=== PATIENT | female | born 1995 | race Hispanic/Latino ===

== ENCOUNTER 2019-06-26 17:07 | Inpatient (IN) | payer MEDICAID ==
[~2019-06-26] VITALS: Ht 165.1 cm; Wt 81.6 kg
[2019-06-26] MEDS ORDERED: LACTATED RINGERS 1000ML 1,000 ML IV PRN (17:18)
[2019-06-26] MEDS ORDERED: MEPERIDINE-PF 50 MG/ML SYG IVP PRN (17:30)
[2019-06-26] MEDS ORDERED: LACTATED RINGERS 500 ML 500 ML IV PRN (17:30)
[2019-06-26] MEDS ORDERED: OXYTOCIN-LR 20 UNITS/1000 ML 1,000 ML IV SCH (17:30)
[2019-06-26] MEDS ORDERED: NALOXONE HCL 0.4 MG/1 ML ML IV PRN (17:30)
[2019-06-26] MEDS ORDERED: EPHEDRINE SULFATE 50 MG/ML AMPULE IVP PRN (17:30)
[2019-06-26] MEDS ORDERED: ROPIVACAINE 0.2% 100ML VIAL 100 ML EP SCH (17:30)
[2019-06-26] MEDS ORDERED: PROMETHAZINE HCL 25 MG/ML 1ML AMPULE IM PRN (17:30)
[2019-06-26 18:02] LABS: HEMATOCRIT 32.2 % (36-48); MEAN CORPUSCULAR HEMOGLOBIN 28.5 pg (27.0-33.0); MEAN CORPUSCULAR HGB CONC 33.2 g/dL (32.0-36.0); MEAN CORPUSCULAR VOLUME 85.6 fL (79-99); PLATELET COUNT (AUTO) 208 K/uL (130-400); RED BLOOD CELL COUNT(AUTO) 3.76 MIL/uL (4.00-5.50); RED CELL DISTRIBUTION WIDTH 13.5 % (11.0-15.5); WHITE BLOOD COUNT (AUTO) 8.7 K/uL (4.8-10.8)
[2019-06-26 18:09] LABS: APPEARANCE,URINE Clear (CLEAR); BILIRUBIN,URINE Negative (NEGATIVE); COLOR,URINE Yellow (YELLOW); GLUCOSE, URINE (UA) Negative (NEGATIVE); KETONES,URINE Negative (NEGATIVE); LEUKOCYTE ESTERASE ,URINE Negative (NEGATIVE); NITRATE,URINE Negative (NEGATIVE); OCCULT BLOOD,URINE Negative (NEGATIVE); PROTEIN,URINE Negative (NEGATIVE); UROBILINOGEN,URINE 0.2 mg/dL (0.2-1.0)
[2019-06-26] MEDS ORDERED: DINOPROSTONE 10 MG VAGINAL SUPP VG SCH (19:10)
[2019-06-26 19:32] VITALS: BP 104/57
[2019-06-26 20:14] LABS: AMPHET/METH SCREEN,URINE NEGATIVE (NEGATIVE); BARBITURATE SCREEN, URINE NEGATIVE (NEGATIVE); BENZODIAZEPINES SCREEN,URINE NEGATIVE (NEGATIVE); CANNABINOID SCREEN,URINE NEGATIVE (NEGATIVE); COCAINE SCREEN,URINE NEGATIVE (NEGATIVE); OPIATE SCREEN,URINE NEGATIVE (NEGATIVE); PHENCYCLIDINE SCREEN,URINE NEGATIVE (NEGATIVE)
[2019-06-27] MEDS ORDERED: OXYTOCIN 10 USP UNITS/ML 20 UNIT in LACTATED RINGERS 1000ML 1,000 ML IV SCH (07:00)
[2019-06-27] MEDS ORDERED: MISOPROSTOL 25 MCG TABLET ONE ×2 (19:38→23:44)
[2019-06-27] MEDS: MISOPROSTOL 100 MCG TABLET VG SCH ×2 (19:56→23:47)
[2019-06-28] MEDS ORDERED: OXYTOCIN-LR 20 UNITS/1000 ML 1,000 ML IV ONE ×3 (03:39→19:31)
[2019-06-28 08:10] LABS: HEPATITIS Bs ANTIGEN SCREEN P Negative (Negative)
[2019-06-28] MEDS ORDERED: FENTANYL CITRATE PF 50 MCG/1 ML 2ML VIAL ONE (12:45)
[2019-06-28] MEDS ORDERED: METHYLERGONOVINE MALEATE 0.2 MG/1 ML ML ONE (18:29)
[2019-06-28] MEDS ORDERED: MISOPROSTOL 200 MCG TABLET ONE (18:31)
[2019-06-28] MEDS ORDERED: IBUPROFEN 600 MG TABLET PO PRN (18:45)
[2019-06-28] MEDS ORDERED: BENZOCAINE/LANOLIN/ALOE VERA 60 ML AEROSOL TP PRN (18:45)
[2019-06-28] MEDS ORDERED: ACETAMINOPHEN 325 MG TAB PO PRN (18:45)
[2019-06-28] MEDS ORDERED: ACETAMINOPHEN-CODEINE 300/30MG TAB PO PRN (18:45)
[2019-06-28] MEDS ORDERED: MEASLES/MUMPS/RUBELLA VACCINE, LIVE 0.5 ML/VIAL SQ PRN (18:45)
[2019-06-28] MEDS ORDERED: LANOLIN 30GM OINTMENT TP PRN (18:45)
[2019-06-28] MEDS ORDERED: WITCH HAZEL 1 PAD TP PRN (18:45)
[2019-06-28] MEDS ORDERED: DIPH,PERTUSS(ACELL),TET VAC/PF 0.5 ML VIAL IM PRN (18:45)
[2019-06-28] MEDS: MISOPROSTOL 100 MCG TABLET VG SCH (20:00)
[2019-06-28] MEDS: DOCUSATE SODIUM 100 MG CAP PO SCH (20:58)
[2019-06-28 22:48] VITALS: BP 108/75
[2019-06-29] MEDS ORDERED: PREN-94 PO (00:32)
[2019-06-29 00:33] VITALS: BP 98/59
[2019-06-29] MEDS: MISOPROSTOL 100 MCG TABLET VG SCH ×2 (04:00)
[2019-06-29 04:04] VITALS: BP 99/65
[2019-06-29 07:48] VITALS: BP 96/60
--- NOTE | 2019-06-29 07:50 | NUR ---
ASSESSMENT: RECEIVED RESTING IN BED, EXPLAINED POC AND UNDERSTANDING VERBALIZED, CALL CAREY AT HER SIDE.
[2019-06-29] MEDS: DOCUSATE SODIUM 100 MG CAP PO SCH (08:11)
--- NOTE | 2019-06-29 09:18 | NUR ---
ASSESSMENT: Sharon HERRERA CNM ASSESSED PT AND DISCUSSED POC.
[2019-06-29 09:48] LABS: HEMATOCRIT 26.5 % (36-48)
[2019-06-29 11:52] VITALS: BP 87/50
--- NOTE | 2019-06-29 13:00 | NUR ---
HYGEINE: TOOK SHOWER.
[2019-06-29 16:00] VITALS: BP 110/76
--- NOTE | 2019-06-29 16:25 | NUR ---
DISCHARGE: DISCHARGE INSTRUCTIONS GIVEN TO PT AND ON SELF CARE POST VAGINAL DELIVERY, DIETS TO FOLLOW, REVIEWED RX'S FOR HOME MEDS, TO CALL DR JOSE'S OFFICE MONDAY AND MAKE FOLLOW UP APPOINTMENT FOR 1-2 WEEKS OR SOONER IF NEEDED. UNDERSTANDING VERBALIZED AND COPIES OF ALL INSTRUCTIONS GIVEN TO PT.
--- NOTE | 2019-06-29 18:30 | NUR ---
DISCHARGE: DISCHARGED HOME WITH HER BABY VIA W/C TO PRIVATE CAR WITH .
== END 2019-06-29 18:30 | disposition home or self-care (01) | DRG 560 ==
LOC: LDH 17:07 → WSH 06-28 22:50
PROVIDERS: ADMIT Obstetrics & Gynecology; ATTEND Obstetrics & Gynecology
PROC: 3E0P7VZ Introduction of Hormone into Female Reproductive, Via Natural or Artificial Opening (ICD-10-PCS; 2019-06-26)
PROC: 3E033VJ Introduction of Other Hormone into Peripheral Vein, Percutaneous Approach (ICD-10-PCS; 2019-06-27)
PROC: 10907ZC Drainage of Amniotic Fluid, Therapeutic from Products of Conception, Via Natural or Artificial Opening (ICD-10-PCS; principal; 2019-06-28)
PROC: 10E0XZZ Delivery of Products of Conception, External Approach (ICD-10-PCS; 2019-06-28)
PROC: 3E0234Z Introduction of Serum, Toxoid and Vaccine into Muscle, Percutaneous Approach (ICD-10-PCS; 2019-06-28)
PROC: 3E0134Z Introduction of Serum, Toxoid and Vaccine into Subcutaneous Tissue, Percutaneous Approach (ICD-10-PCS; 2019-06-28)
PROC: 3E0R3BZ Introduction of Anesthetic Agent into Spinal Canal, Percutaneous Approach (ICD-10-PCS; 2019-06-28)
PROC: 00HU33Z Insertion of Infusion Device into Spinal Canal, Percutaneous Approach (ICD-10-PCS; 2019-06-28)
DX: O62.2 Other uterine inertia (principal); Z37.0 Single live birth; Z23 Encounter for immunization; Z3A.40 40 weeks gestation of pregnancy
CPT/HCPCS: 36415; 76815; 80305; 81003; 85014; 85018; 85027; 86592; 86850; 86900; 86901; 87340; A4314; G0378; J2175; J2210; J2550; J2590; J2795; J3010; J7120

== ENCOUNTER 2021-11-05 15:36 | Inpatient (IN) | payer MEDICAID ==
[~2021-11-05] VITALS: Ht 165.1 cm; Wt 89.8 kg
[~2021-11-05 15:36] MED LIST: PREN-94 PO
[2021-11-16] MEDS ORDERED: PROMETHAZINE HCL 25 MG/ML 1ML AMPULE IM PRN (18:00)
[2021-11-16] MEDS ORDERED: MEPERIDINE-PF 50 MG/ML SYG IVP PRN (18:00)
[2021-11-16] MEDS ORDERED: NALOXONE HCL 0.4 MG/1 ML ML IV PRN (18:00)
[2021-11-16] MEDS ORDERED: EPHEDRINE SULFATE 50 MG/ML AMPULE IVP PRN (18:00)
[2021-11-16] MEDS ORDERED: LACTATED RINGERS 500 ML 500 ML IV PRN (18:00)
[2021-11-16] MEDS ORDERED: ROPIVACAINE 0.2% 100ML VIAL 100 ML EP PRN (18:00)
[2021-11-16 18:20] LABS: HEMATOCRIT 33.2 % (36-48); MEAN CORPUSCULAR HEMOGLOBIN 29.7 pg (27.0-33.0); MEAN CORPUSCULAR VOLUME 87.1 fL (79-99); RED BLOOD CELL COUNT(AUTO) 3.81 MIL/uL (4.00-5.50); RED CELL DISTRIBUTION WIDTH 13.3 % (11.0-15.5); WHITE BLOOD COUNT (AUTO) 8.7 K/uL (4.8-10.8)
[2021-11-16 18:22] LABS: APPEARANCE,URINE CLEAR (CLEAR); BILIRUBIN,URINE NEGATIVE (NEGATIVE); COLOR,URINE LIGHT-YELLOW (YELLOW); GLUCOSE, URINE (UA) NEGATIVE (NEGATIVE); KETONES,URINE NEGATIVE (NEGATIVE); LEUKOCYTE ESTERASE ,URINE NEGATIVE Leu/uL (NEGATIVE); NITRATE,URINE NEGATIVE (NEGATIVE); OCCULT BLOOD,URINE NEGATIVE (NEGATIVE); PROTEIN,URINE NEGATIVE (NEGATIVE); UROBILINOGEN,URINE 0.2 mg/dL (0.2-1.0)
[2021-11-16] MEDS: LACTATED RINGERS 1000ML 1,000 ML IV PRN (18:35)
[2021-11-16 22:02] VITALS: BP 121/66
[2021-11-17] MEDS ORDERED: OXYTOCIN-LR 20 UNITS/1000 ML 1,000 ML IV SCH ×2 (04:00→13:00)
[2021-11-17] MEDS: LACTATED RINGERS 1000ML 1,000 ML IV PRN ×3 (04:01→10:00)
[2021-11-17 10:46] LABS: RAPID PLASMA REAGIN NONREACTIVE (NONREACTIVE)
[2021-11-17] MEDS ORDERED: LANOLIN 30GM OINTMENT TP PRN (13:00)
[2021-11-17] MEDS ORDERED: MEASLES/MUMPS/RUBELLA VACCINE, LIVE 0.5 ML/VIAL SQ PRN (13:00)
[2021-11-17] MEDS ORDERED: ACETAMINOPHEN 325 MG TAB PO PRN (13:00)
[2021-11-17] MEDS ORDERED: DIPH,PERTUSS(ACELL),TET VAC/PF 0.5 ML VIAL IM PRN (13:00)
[2021-11-17] MEDS ORDERED: ACETAMINOPHEN WITH CODEINE 1 TAB TAB PO PRN (13:00)
[2021-11-17] MEDS ORDERED: BENZOCAINE/LANOLIN/ALOE VERA 60 ML AEROSOL TP PRN (13:00)
[2021-11-17] MEDS ORDERED: WITCH HAZEL 1 PAD TP PRN (13:00)
[2021-11-17 14:50] VITALS: BP 100/66
[2021-11-17] MEDS: IBUPROFEN 600 MG TABLET PO PRN (15:36)
[2021-11-17 16:04] VITALS: BP 123/71
[2021-11-17 19:13] VITALS: BP 117/78
[2021-11-17] MEDS: DOCUSATE SODIUM 100 MG CAP PO SCH (21:00)
[2021-11-17 23:10] VITALS: BP 100/60
[2021-11-18 03:48] VITALS: BP 101/52
[2021-11-18] MEDS: IBUPROFEN 600 MG TABLET PO PRN ×2 (03:51→09:16)
[2021-11-18 06:53] LABS: HEMATOCRIT 30.7 % (36-48); MEAN CORPUSCULAR HEMOGLOBIN 29.3 pg (27.0-33.0); MEAN CORPUSCULAR HGB CONC 32.9 g/dL (32.0-36.0); RED BLOOD CELL COUNT(AUTO) 3.45 MIL/uL (4.00-5.50); RED CELL DISTRIBUTION WIDTH 13.5 % (11.0-15.5); WHITE BLOOD COUNT (AUTO) 10.7 K/uL (4.8-10.8)
[2021-11-18 07:37] VITALS: BP 116/72
[2021-11-18] MEDS: DOCUSATE SODIUM 100 MG CAP PO SCH (09:16)
[2021-11-18 11:55] VITALS: BP 162/89
[2021-11-18 11:58] VITALS: BP 127/77
== END 2021-11-18 13:15 | disposition home or self-care (01) | DRG 560 ==
LOC: LDH 11-16 17:40 → OBSVTOIN 11-16 17:40 → WSH 11-17 14:44
PROVIDERS: ADMIT Obstetrics & Gynecology; ATTEND Obstetrics & Gynecology
PROC: 10E0XZZ Delivery of Products of Conception, External Approach (ICD-10-PCS; principal; 2021-11-17)
PROC: 3E0R3BZ Introduction of Anesthetic Agent into Spinal Canal, Percutaneous Approach (ICD-10-PCS; 2021-11-17)
PROC: 00HU33Z Insertion of Infusion Device into Spinal Canal, Percutaneous Approach (ICD-10-PCS; 2021-11-17)
PROC: 10907ZC Drainage of Amniotic Fluid, Therapeutic from Products of Conception, Via Natural or Artificial Opening (ICD-10-PCS; 2021-11-17)
PROC: 0UQMXZZ Repair Vulva, External Approach (ICD-10-PCS; 2021-11-17)
DX: O69.81X0 Labor and delivery complicated by cord around neck, without compression, not applicable or unspecified (principal); Z37.0 Single live birth; O71.82 Other specified trauma to perineum and vulva; Z3A.39 39 weeks gestation of pregnancy
CPT/HCPCS: 36415; 81003; 85027; 86592; 86701; 86850; 86900; 86901; 87340; 87390; 90715; A4314; G0378; J2590; J2795; J7120

== ENCOUNTER 2025-01-16 21:51 | Emergency (ER) | payer MEDICAID ==
[~2025-01-16] VITALS: Ht 165.1 cm; Wt 88.5 kg
--- NOTE | 2025-01-16 21:57 | NUR ---
UA CUP PROVIDED
--- NOTE | 2025-01-16 22:05 | NUR ---
UA COLLECTED AND SENT
[2025-01-16 22:14] LABS: APPEARANCE,URINE CLEAR (CLEAR); GLUCOSE, URINE (UA) NEGATIVE (NEGATIVE); LEUKOCYTE ESTERASE ,URINE NEGATIVE Leu/uL (NEGATIVE); NITRATE,URINE NEGATIVE (NEGATIVE); OCCULT BLOOD,URINE MODERATE (NEGATIVE)
[2025-01-16 22:15] LABS: ADD UA MICROSCOPIC YES
[2025-01-16 22:18] LABS: SQUAMOUS EPITHELIAL CELL,UR FEW /HPF (0-2)
--- NOTE | 2025-01-16 22:51 | ERN ---
General Chief Complaint: OB>20 weeks gest. Stated Complaint: 24 WEEKS OB, VAGINAL BLEEDING Time Seen by MD: 21:57 History of Present Illness Initial Comments 29-year-old female currently 24 weeks follow up by Dr. rhodes here for evaluation of lower abdominal pain and vaginal bleeding. Patient states that she had woke up this morning in her normal state of health however noticed some vaginal bleeding. No fever no cough no shortness a breath. No nausea vomiting diarrhea. No abdominal pain other than the lower abdomen. Allergies: Coded Allergies: No Known Allergies (Unverified Allergy, Unknown, 06/26/19) Home Meds Reported Medications #103/Iron Fumarate/FA ( Tablet) 1 Each Tablet, 1 EACH PO DAILY, TAB 06/29/19 Past Medical History Past Medical History: No Pertinent History Past Surgical History: Other Surgical History Other: LEFT CLAVICLE Female( History) : 3 Para: 2 Gastrointestinal/Abdominal: (+) abdominal pain Genitourinary: (+) vaginal bleeding Review of Systems: was completed, & the rest were negative. Physical Exam General Appearance: (+) no apparent distress Orientation: (+) alert, (+) oriented x 3 Eye: bilateral eye normal inspection, bilateral eye PERRL Ear, Nose, Throat: (+) hearing grossly normal, (+) normal ENT inspection, (+) moist mucous membraine, (+) normal pharynx Neck: (+) normal inspection, (+) supple, (+) full range of motion Respiratory: (+) chest non-tender, (+) lungs clear Heart: (+) regular; (-) murmur Gastrointestinal: (+) soft (Gravid abdomen) Skin: (+) normal color, (+) warm/dry Results Laboratory and Microbiology Lab and Micro Result Laboratory Tests Test 01/16/25 22:05 01/16/25 23:15 Urine Color LIGHT-YELLOW (YELLOW) Urine Appearance CLEAR (CLEAR) Urine pH 7.5 (5.0-8.0) Urine Specific [place] 1.023 (1.001-1.031) Urine Protein NEGATIVE mg/dL (NEGATIVE) Urine Glucose (UA) NEGATIVE mg/dL (NEGATIVE) Urine Ketones 5 mg/dL (NEGATIVE) H Urine Occult Blood MODERATE (NEGATIVE) H Urine Nitrate NEGATIVE (NEGATIVE) Urine Bilirubin NEGATIVE mg/dL (NEGATIVE) Urine Urobilinogen 0.2 mg/dL (0.2-1.0) Urine Leukocyte Esterase NEGATIVE Kay/uL Urine RBC TNTC /HPF (0-1) H Urine WBC 2-5 /HPF (0-1) H Urine Squamous Epithelial Cells FEW /HPF (0-2) Urine Bacteria RARE /HPF (None Seen) White Blood Count 9.6 K/uL (4.8-10.8) Red Blood Count 3.68 MIL/uL (4.00-5.50) L Hemoglobin 11.3 g/dL (12.0-16.0) L Hematocrit 32.6 % (36-48) L Mean Corpuscular Volume 88.6 fL (79-99) Mean Corpuscular Hemoglobin 30.7 pg (27.0-33.0) Mean Corpuscular Hemoglobin Concent 34.7 g/dL (32.0-36.0) Red Cell Distribution Width 13.4 % (11.0-15.5) Platelet Count 212 K/uL (130-400) Mean Platelet Volume 10.5 fL (7.5-10.5) Immature Granulocyte % (Auto) 0.2 % (0-1) Neutrophils (%) (Auto) 71.3 % (40.0-77.0) Lymphocytes (%) (Auto) 21.6 % (21.0-51.0) Monocytes (%) (Auto) 6.0 % (3.0-13.0) Eosinophils (%) (Auto) 0.7 % (0.0-8.0) Basophils (%) (Auto) 0.2 % (0.0-5.0) Neutrophils # (Auto) 6.8 K/uL (1.8-7.7) Lymphocytes # (Auto) 2.1 K/uL (1.0-4.8) Monocytes # (Auto) 0.6 K/uL (0.1-1.0) Eosinophils # (Auto) 0.07 K/uL (0.00-0.70) Basophils # (Auto) 0.02 K/uL (0.00-0.20) Absolute Immature Granulocyte (auto 0.02 K/uL (0-1) Nucleated Red Blood Cells 0.0 % (0.0-0.19) Sodium Level 136 mmol/L (136-145) Potassium Level 3.6 mmol/L (3.5-5.1) Chloride Level 103 mmol/L (101-111) Carbon Dioxide Level 24 mmol/L (21-32) Blood Urea Nitrogen 6 mg/dL (7-18) L Creatinine 0.7 mg/dL (0.5-1.0) Glomerular Filtration Rate Calc 121 mL/min (>90) Random Glucose 105 mg/dL (70-105) Total Calcium 8.0 mg/dL (8.5-10.1) L Labs Reviewed?: Yes EKG/XRAY/US/CT/MRI Ultrasound Comment heart tones 154. Fetus at 25 weeks. Cervix closed No abnormality as per wet read REASON: lower abd pain, vaginal bleeding, ORDERING PHYSICIAN: FARA LUNA MD PROCEDURE: OB >14 - US OB >14 WEEKS EXAMINATION: COMPLETE TRANSABDOMINAL OBSTETRIC ULTRASOUND. CLINICAL INDICATION: OB second trimester. Lower abdominal pain and vaginal bleeding. History of previous ultrasound showing echogenic lung. COMPARISON: None. TECHNIQUE: Grayscale ultrasonography of the lower abdomen and pelvis. FINDINGS: A single, live, intrauterine fetus is seen in cephalic presentation. The estimated date of delivery as per the ultrasound done today is 05/25/2025, corresponding to a gestational age of 25 weeks 4 days. The placenta is posterior, grade I maturity. No placenta previa. Cervix is closed, measures 3.9 cm. Heart rate is 154 beats per minute. weight is 834 +/- 125 g (74%). The parameters are as follows: Biparietal diameter: 6.3 cm (EGA - 25 weeks, 4 days). Head circumference: 23.6 cm (EGA - 25 weeks, 4 days). Abdominal circumference: 21.1 cm (EGA - 25 weeks, 4 days). Femoral length: 4.7 cm (EGA - 25 weeks, 5 days). HC/AC ratio: 1.12 FL/AC ratio: 22.4 Estimated gestational age: 25 Weeks 4 Days. EDC (by LMP): 05/06/2025 and EDC (by measurement): 05/25/2025. parts, including the four-chamber heart, spine, stomach, kidneys, urinary bladder, anterior abdominal wall, lower extremities, upper extremities, three-vessel umbilical cord, face, septum pellucidum, and cerebellum, appear normal. Cisterna magna measures 0.78 cm. Amniotic fluid is normal for the period of gestation, with the largest pocket measuring 6.2 cm. The amniotic fluid index is: 17.5 cm. IMPRESSION: Single live intrauterine corresponding to gestational age of 25 weeks and 4 days with cephalic presentation at the time of this scan and with no obvious anatomical abnormality. /[facility] 29-year-old female here for evaluation of vaginal bleeding. We will get ultrasound and labs. Disposition pending results of labs and ultrasound. Likely discharge home. ED Course Orders Procedure Category Date Status Time Cbc With Differential LAB 01/16/25 Complete 22:02 Basic Metabolic Panel LAB 01/16/25 In Process 22:02 Hcg,Quantitative LAB 01/16/25 In Process 22:02 Urinalysis Profile LAB 01/16/25 Complete 22:02 Us Ob >14 Weeks US 01/16/25 Resulted 22:02 Vital Signs Date Time Temp Pulse Resp B/P (MAP) Pulse Ox O2 Delivery O2 Flow Rate FiO2 01/16/25 23:32 97.3 78 18 118/75 98 Room Air* 0 21 01/16/25 21:55 97.3 81 18 121/73 98 Room Air DX & DISP Disposition: Discharge Departure Impression: Primary Impression: Threatened Additional Impression: Vaginal bleeding in Condition: Stable Referrals: SELF,REFERRAL (PCP) FARA LUNA MD Jan 16, 2025 22:51
--- NOTE | 2025-01-16 23:20 | HMCIMG ---
EXAMINATION: COMPLETE TRANSABDOMINAL OBSTETRIC ULTRASOUND. CLINICAL INDICATION: OB second trimester. Lower abdominal pain and vaginal bleeding. History of previous ultrasound showing echogenic lung. COMPARISON: None. TECHNIQUE: Grayscale ultrasonography of the lower abdomen and pelvis. FINDINGS: A single, live, intrauterine fetus is seen in cephalic presentation. The estimated date of delivery as per the ultrasound done today is 05/25/2025, corresponding to a gestational age of 25 weeks 4 days. The placenta is posterior, grade I maturity. No placenta previa. Cervix is closed, measures 3.9 cm. Heart rate is 154 beats per minute. weight is 834 +/- 125 g (74%). The parameters are as follows: Biparietal diameter: 6.3 cm (EGA - 25 weeks, 4 days). Head circumference: 23.6 cm (EGA - 25 weeks, 4 days). Abdominal circumference: 21.1 cm (EGA - 25 weeks, 4 days). Femoral length: 4.7 cm (EGA - 25 weeks, 5 days). HC/AC ratio: 1.12 FL/AC ratio: 22.4 Estimated gestational age: 25 Weeks 4 Days. EDC (by LMP): 05/06/2025 and EDC (by measurement): 05/25/2025. parts, including the four-chamber heart, spine, stomach, kidneys, urinary bladder, anterior abdominal wall, lower extremities, upper extremities, three-vessel umbilical cord, face, septum pellucidum, and cerebellum, appear normal. Cisterna magna measures 0.78 cm. Amniotic fluid is normal for the period of gestation, with the largest pocket measuring 6.2 cm. The amniotic fluid index is: 17.5 cm. IMPRESSION: Single live intrauterine corresponding to gestational age of 25 weeks and 4 days with cephalic presentation at the time of this scan and with no obvious anatomical abnormality. /[place]
[2025-01-16 23:22] LABS: IMMATURE GRANULOCYTE ABSOLUTE 0.02 K/uL (0-1); NUCLEATED RED BLOOD CELLS 0.0 % (0.0-0.19); PLATELET COUNT (AUTO) 212 K/uL (130-400); RED BLOOD CELL COUNT(AUTO) 3.68 MIL/uL (4.00-5.50); RED CELL DISTRIBUTION WIDTH 13.4 % (11.0-15.5); WHITE BLOOD COUNT (AUTO) 9.6 K/uL (4.8-10.8)
[2025-01-16 23:29] LABS: CREATININE 0.7 mg/dL (0.5-1.0); GLOMERULAR FILTR. RATE CALC 121.0 mL/min (>90); GLUCOSE,RANDOM 105.0 mg/dL (70-105); SODIUM SERUM 136.0 mmol/L (136-145); UREA NITROGEN, BLOOD 6.0 mg/dL (7-18)
[2025-01-17 00:08] VITALS: BP 124/76; PULSE 68; RESP 18; TEMP 97.3; O2SAT 98
== END 2025-01-17 00:09 | disposition home or self-care (01) ==
LOC: EDH 21:51
DX: O20.0 Threatened abortion (principal); Z3A.25 25 weeks gestation of pregnancy
CPT/HCPCS: 36415; 76805; 80048; 81001; 84702; 85025; 99284